=== PATIENT | male | born 1985 | race Caucasian/White ===

== ENCOUNTER 2024-06-16 23:25 | Emergency (ER) | payer SELFPAY ==
[2024-06-16 23:32] VITALS: BP 151/102; PULSE 86; TEMP 36.9; O2SAT 100; BMI 28.1
--- NOTE | 2024-06-16 23:43 | ED_ITS ---
HPI - Skin/Abscess/Foreign Bdy General Chief complaint: Skin/Abscess/Foreign Body Stated complaint: THINKS HAS MRSA Time Seen by Provider: 06/16/24 23:32 Source: patient Mode of arrival: walk-in Limitations: no limitations History of Present Illness HPI narrative: This 39-year-old male with no significant medical history but who is a smoker presents for evaluation and concerned that he has MRSA infection over his left knee. The patient works as in fire latter-day and states that approximately 10 days ago he sustained an abrasion to the medial aspect of his left knee. Since that time he has had several pustules erupt adjacent to the area of the abrasion. He states that the knee aches. He has also had some chills and bodyaches. He denies any documented fever. He does have some nasal congestion and occasional cough. He denies any history of MRSA but is concerned that he may have a MRSA infection. He does not have a history of wrestling. He denies any chest pain or shortness of breath. Related Data Home Medications ?Medication ?Instructions ?Recorded ?Confirmed No Known Home Medications 06/16/24 06/16/24 Allergies Allergy/AdvReac Type Severity Reaction Status Date / Time No Known Drug Allergies Allergy Verified 06/16/24 23:31 Review of Systems ROS Status of ROS 10 or more systems reviewed and unremark able except as noted in history and below Exam Narrative Exam Narrative: Vital signs and Nursing Notes reviewed: Patient is afebrile with a normal pulse, blood pressure is elevated 151/102, he is not hypoxic with pulse ox of 100% on room air General: Awake, alert, oriented, no acute distress, lying comfortably on the stretcher HEENT: Normocephalic atraumatic, mucous membranes are moist and pink, eyes are clear, normal conjunctiva, vision is grossly intact, posterior pharynx is normal in appearance. Neck: Supple Chest: Lungs are clear to auscultation with good air entry, there is no wheezing rhonchi or rales appreciated no accessory muscle use, patient is speaking in complete sentences-no chest wall tenderness to palpation CVS: Regular rate and rhythm S1-S2, no murmurs rubs or gallops, pulses are brisk and equal bilaterally ABD: Soft, nondistended, nontender, no rebound guarding or rigidity, bowel sounds are normal, no pulsatile masses appreciated Extremities: There is some redness swelling and several tender nonfluctuant pustules to the left knee over the patella and circumferentially around the patella. There is no fluctuant papules amenable to incision and drainage. There is mild local cellulitis appreciated. The remainder of his skin does not appear to be infected. There is no calf swelling or tenderness noted. Skin: Left knee redness, swelling, signs of cellulitis with small pustules which are consistent with MRSA although no fluctuant areas amenable to drainage are appreciated. Neuro: No focal deficits Constitutional Vital Signs, click to edit/add: Last Vital Signs Temp 98.5 F 06/16/24 23:32 Pulse 86 06/16/24 23:32 Resp 18 06/16/24 23:32 BP 151/102 H 06/16/24 23:32 Pulse Ox 100 06/16/24 23:32 O2 Del Method Room Air 06/16/24 23:32 Course Vital Signs Vital signs: Vital Signs Temperature 98.5 F 06/16/24 23:32 Pulse Rate 86 06/16/24 23:32 Respiratory Rate 18 06/16/24 23:32 Blood Pressure 151/102 H 06/16/24 23:32 Pulse Oximetry 100 06/16/24 23:32 Oxygen Delivery Method Room Air 06/16/24 23:32 Temperature 98.5 F 06/16/24 23:32 Pulse Rate 86 06/16/24 23:32 Respiratory Rate 18 06/16/24 23:32 Blood Pressure 151/102 H 06/16/24 23:32 Pulse Oximetry 100 06/16/24 23:32 Oxygen Delivery Method Room Air 06/16/24 23:32 MDM - Skin/Abscess/Foreign Bdy MDM Narrative Medical decision making narrative: This 39-year-old male with no significant medical history who is not diabetic presents for evaluation of a painful rash over his left knee that started approximately 10 days ago. He is concerned that he may have MRSA. 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 He has a tender rash with multiple papules overlying his left patella and knee area. There was no fluctuant areas amenable to incision and drainage. Clinically this does look to be MRSA. An IV was placed and he was medicated with Toradol, IV fluids and IV clindamycin. Routine labs are reviewed and are normal. He has a normal white count hemoglobin. Electrolytes are normal. He is negative for COVID-19 and influenza. Results of his labs were discussed with him. He is feeling better after his treatment. He will be discharged home with a prescription for clindamycin ibuprofen and Louise. He was encouraged to soak in a warm tub and use warm compresses over the left knee to help this infection organize and/or resolve. He was encouraged return the emergency department as needed for worsening symptoms or if there is any drainage from the knee amenable to culture for confirmation of the MRSA infection. He is in agreement with this plan. Lab Data Labs: Lab Results 06/16/24 06/16/24 Range/Units 23:50 23:54 WBC 7.5 (4.0-11.0) 10^3/uL RBC 4.75 (4.70-6.10) 10^6/uL Hgb 14.7 (14.0-18.0) g/dL Hct 42.9 (42.0-54.0) % MCV 90.3 (80.0-94.0) fL MCH 30.9 (25.9-34.0) pg MCHC 34.3 (29.9-35.2) g/dL RDW 11.9 (11.0-15.0) % Plt Count 267 (150-450) 10^3/uL MPV 11.2 (9.5-13.5) fL Neut % (Auto) 67.9 (43.0-75.0) % Lymph % (Auto) 22.0 (20.5-60.0) % [place] % (Auto) 6.7 (1.7-12.0) % Eos % (Auto) 2.8 (0.9-7.0) % Baso % (Auto) 0.5 (0.2-2.0) % Neut # (Auto) 5.1 (1.4-6.5) 10^3/uL Lymph # (Auto) 1.6 (1.2-3.8) 10^3/uL [place] # (Auto) 0.5 (0.3-0.8) 10^3/uL Eos # (Auto) 0.2 (0.0-0.7) 10^3/uL Baso # (Auto) 0.0 (0.0-0.1) 10^3/uL Abs Immat Gran (auto) 0.01 (0.00-0.03) 10^3/uL Imm/Tot Granulo (auto) 0.1 (0.0-0.5) % Sodium 139 (136-145) mmol/L Potassium 3.9 (3.5-5.1) mmol/L Chloride 103 (98-107) mmol/L Carbon Dioxide 29.7 (21.0-32.0) mmol/L Anion Gap 10.2 BUN 15.0 (7.0-18.0) mg/dL Creatinine 1.22 (0.70-1.30) mg/dL Est GFR ( Amer) >60 (>=60 mL/min/1.73m^2) Est GFR (Non-Af Amer) >60 (>=60 mL/min/1.73m^2) BUN/Creatinine Ratio 12.3 Glucose 138 H (74-106) mg/dL Lactate 1.5 (0.4-2.0) mmol/L Calcium 9.4 (8.5-10.1) mg/dL Total Bilirubin 0.7 (0.2-1.0) mg/dL AST 14 L (15-37) U/L ALT 26 (16-63) U/L Alkaline Phosphatase 61 (46-116) U/L Total Protein 7.3 (6.4-8.2) g/dL Albumin 4.0 (3.4-5.0) g/dL Globulin 3.3 g/dL Albumin/Globulin Ratio 1.2 Influenza Type A Ag Negative Influenza Type B Ag Negative SARS-CoV-2 Ag (CV2AG) Negative (NEGATIVE) Discharge Plan Discharge Chief Complaint: Skin/Abscess/Foreign Body Clinical Impression: Cellulitis Patient Disposition: Home, Self-Care Time of Disposition Decision: 00:53 Condition: Good Prescriptions / Home Meds: No Action No Known Home Medications Print Language: Citizen Of [place] Instructions: MRSA (Methicillin-Resistant Staphylococcus Aureus) (ED), Cellulitis (ED), Warm Compress or Soak (ED) Referrals: Physician,Non-Staff, MD [Primary Care Provider] - 1 week
[2024-06-16 23:55] VITALS: O2SAT 99
[2024-06-16 23:57] VITALS: BP 120/79; O2SAT 99
[2024-06-17] VITALS (8 sets, daily range): BP systolic 121–130; BP diastolic 78–82; PULSE 65; TEMP 36.8; O2SAT 99–100
[2024-06-17] MEDS: 0.9 % SODIUM CHLORIDE 1,000 ML 1000 ML IV (00:03)
[2024-06-17] MEDS: KETOROLAC TROMETHAMINE 30 MG/ML VIAL IVP (00:04)
[2024-06-17] MEDS: CLINDAMYCIN PHOSPHATE/D5W 900 MG/50 ML PREMIX 100 MG IV (00:04)
[2024-06-17 00:05] LABS: Basophils Percent Auto 0.5 % (0.2-2.0); Eosinophils Absolute Auto 0.2 10^3/uL (0.0-0.7); Eosinophils Percent Auto 2.8 % (0.9-7.0); Hematocrit 42.9 % (42.0-54.0); Hemoglobin 14.7 g/dL (14.0-18.0); Immature Granulocytes Abs Auto 0.01 10^3/uL (0.00-0.03); Immature Granulocytes Pct Auto 0.1 % (0.0-0.5); Lymphocytes Absolute Auto 1.6 10^3/uL (1.2-3.8); Mean Corpuscular HGB Conc 34.3 g/dL (29.9-35.2); Mean Corpuscular Hemoglobin 30.9 pg (25.9-34.0); Mean Corpuscular Volume 90.3 fL (80.0-94.0); Mean Platelet Volume 11.2 fL (9.5-13.5); Monocytes Absolute Auto 0.5 10^3/uL (0.3-0.8); Monocytes Percent Auto 6.7 % (1.7-12.0); Neutrophils Absolute Auto 5.1 10^3/uL (1.4-6.5); Neutrophils Percent Auto 67.9 % (43.0-75.0); Platelet Count 267 10^3/uL (150-450); Red Blood Count 4.75 10^6/uL (4.70-6.10); Red Cell Distribution Width 11.9 % (11.0-15.0); White Blood Count 7.5 10^3/uL (4.0-11.0)
[2024-06-17 00:21] LABS: Influenza Virus A Antigen Negative; Influenza Virus B Antigen Negative; Internal Control Within Normal Limits; SARS-CoV-2 Ag NEGATIVE (NEGATIVE)
[2024-06-17 00:24] LABS: Alanine Aminotransferase 26 U/L (16-63); Albumin Globulin Ratio 1.2; Alkaline Phosphatase 61 U/L (46-116); Anion Gap 10.2; Aspartate Amino Transferase 14 U/L (15-37); BUN Creatinine Ratio 12.3; Bilirubin Total 0.7 mg/dL (0.2-1.0); Calcium 9.4 mg/dL (8.5-10.1); Carbon Dioxide 29.7 mmol/L (21.0-32.0); Chloride 103 mmol/L (98-107); Estimated GFR (African America >60 (>=60 mL/min/1.73m^2); Estimated GFR (Non-African Ame >60 (>=60 mL/min/1.73m^2); Globulin 3.3 g/dL; Glucose 138 mg/dL (74-106); Potassium 3.9 mmol/L (3.5-5.1); Sodium 139 mmol/L (136-145); Total Protein 7.3 g/dL (6.4-8.2)
[2024-06-17 00:26] LABS: Lactate/Lactic Acid 1.5 mmol/L (0.4-2.0)
--- NOTE | 2024-06-17 01:11 | PC.NURSE ---
i gave this patient verbal and written discharge orders along with 3 Rx and this patient voices yes to understanding these. at time of discharge charge this patient voices no concerns and shows no signs of distress. i also told this patient not to drive automobile, operate any machine or go to work while talking the pain medication Pro[place], this patient voices yes to undersatnding this
== END 2024-06-17 01:14 | disposition home or self-care (01) ==
PROVIDERS: Emergency Provider Emergency Medicine
DX: L03.116 Cellulitis of left lower limb (principal)
CPT/HCPCS: 36415; 80053; 83605; 85025; 87804; 87811; 96365; 96375; 99284; J0736; J1885